=== PATIENT | male | born 1985 | race Caucasian/White ===

== ENCOUNTER 2016-05-05 21:45 | Emergency (ER) | payer OTHER ==
[~2016-05-05] VITALS: Ht 180.3 cm; Wt 85.0 kg
[~2016-05-05 21:45] MED LIST: CLIN150 PO; DOXY100T PO; IBUP800T23 PO
[2016-05-05 22:01] VITALS: BP 152/96; PULSE 105; RESP 18; TEMP 98.2; O2SAT 99
[2016-05-05] MEDS ORDERED: HALOPERIDOL LACTATE 5 MG/ML AMP ONE (23:15)
[2016-05-05] MEDS ORDERED: LORazepam 2 MG/ML VIAL ONE (23:15)
[2016-05-05] MEDS ORDERED: LORazepam 2 MG/ML VIAL IM ONE (23:30)
[2016-05-05] MEDS ORDERED: HALOPERIDOL LACTATE 5 MG/ML AMP IM ONE (23:30)
--- NOTE | 2016-05-06 00:18 | PD ---
HPI Chief Complaint: Psychiatric Symptoms Time Seen by Provider: 00:10 Travel History International Travel<30 days: No Contact w/Intl Traveler<30days: No Traveled to known affect area: No History of Present Illness HPI 30-year-old white male presents to emergency department under Baugh act by PD. The patient was observed carrying a knife and was acting out. The patient had been trespassed. He is brought in under [employer] act due to concern for safety of the patient as well as others. The patient here is acutely agitated and psychotic. He is making no sense. The patient is threatening to hurt the staff. I have come in to examine the patient. He is standing in threatening fashion. He is making verbally threatening statements towards the staff and myself. An order for Haldol 5 mg and Ativan 2 mg IM is given. Restraint orders are given. The patient is taken down and put in leather restraints for staff protection. Review of the medical record indicates a history of substance abuse in the past. The patient is acutely psychotic and no meaningful information is obtainable at this time. [facility] Past Medical History Narrative Medical Patient is acutely psychotic and unable to give information. Medical History: Unable to Obtain Diminished Hearing: No Tetanus Vaccination: Unknown Past Surgical History Surgical History: Unable to Obtain Social History Narrative Social History Unable to obtain Alcohol Use: Yes Tobacco Use: Yes Substance Use: Yes Allergies-Medications (Allergen,Severity, Reaction): Coded Allergies: Claritin (Verified Allergy, Severe, 05/05/16) Ultram (Verified Allergy, Severe, 05/05/16) Vicodin (Verified Allergy, Severe, 05/05/16) Reported Meds & Prescriptions Reported Meds & Active Scripts Active No Active Prescriptions or Reported Medications Review of Systems ROS Limitations: Psychotic Physical Exam Narrative GENERAL: Well-nourished, well-developed patient. Patient is agitated and threatening towards staff and myself. SKIN: Warm and dry. HEAD: Normocephalic and atraumatic. EYES: No scleral icterus. No injection or drainage. ENT: No nasal drainage noted. Mucous membranes pink. Airway patent. NECK: Supple, trachea midline. Moves head freely without obvious discomfort. CARDIOVASCULAR: Regular rate and rhythm without murmurs, gallops, or rubs. RESPIRATORY: Breath sounds equal bilaterally. No accessory muscle use. GASTROINTESTINAL: Abdomen soft, non-tender, nondistended. EXTREMITIES: No cyanosis or edema. BACK: Nontender without obvious deformity. No CVA tenderness. NEURO: Patient is alert to person. no sensorimotor deficits. Nonfocal. Pressured speech. PSYCH: The patient is acutely disorganized and delusional. Data Data Last Documented VS Vital Signs Date Time Temp Pulse Resp B/P Pulse Ox O2 Delivery O2 Flow Rate FiO2 05/05/16 22:19 106 21 05/05/16 22:01 98.2 152/96 99 Orders Complete Blood Count With Diff (05/05/16 22:02) Comprehensive Metabolic Panel (05/05/16 22:02) Drug Screen, Random Urine (05/05/16 22:02) Alcohol (Ethanol) (05/05/16 22:02) Salicylates (Aspirin) (05/05/16 22:02) Tylenol (Acetaminophen) (05/05/16 22:02) Psych Screen (05/05/16 22:02) Haloperidol Inj (Haldol Inj) (05/05/16 23:15) Lorazepam Inj (Ativan Inj) (05/05/16 23:15) Haloperidol Inj (Haldol Inj) (05/05/16 23:30) Lorazepam Inj (Ativan Inj) (05/05/16 23:30) Restraints Violent (05/05/16 23:16) Labs Laboratory Tests Test 05/06/16 00:25 White Blood Count 8.8 TH/MM3 Red Blood Count 4.93 MIL/MM3 Hemoglobin 15.4 GM/DL Hematocrit 42.8 % Mean Corpuscular Volume 86.9 FL Mean Corpuscular Hemoglobin 31.3 PG Mean Corpuscular Hemoglobin 36.0 % Concent Red Cell Distribution Width 13.1 % Platelet Count 235 TH/MM3 Mean Platelet Volume 7.7 FL Neutrophils (%) (Auto) 64.5 % Lymphocytes (%) (Auto) 18.3 % Monocytes (%) (Auto) 15.0 % Eosinophils (%) (Auto) 1.4 % Basophils (%) (Auto) 0.8 % Neutrophils # (Auto) 5.7 TH/MM3 Lymphocytes # (Auto) 1.6 TH/MM3 Monocytes # (Auto) 1.3 TH/MM3 Eosinophils # (Auto) 0.1 TH/MM3 Basophils # (Auto) 0.1 TH/MM3 CBC Comment AUTO DIFF Sodium Level 141 MEQ/L Potassium Level 3.5 MEQ/L Chloride Level 105 MEQ/L Carbon Dioxide Level 28.4 MEQ/L Anion Gap 8 MEQ/L Blood Urea Nitrogen 13 MG/DL Creatinine 0.88 MG/DL Estimat Glomerular Filtration 102 ML/MIN Rate Random Glucose 142 MG/DL Calcium Level 9.0 MG/DL Total Bilirubin 1.0 MG/DL Aspartate Amino Transf 36 U/L (AST/SGOT) Alanine Aminotransferase 69 U/L (ALT/SGPT) Alkaline Phosphatase 59 U/L Total Protein 7.3 GM/DL Albumin 3.9 GM/DL Salicylates Level 2.7 MG/DL Acetaminophen Level LESS THAN 2.0 MCG/ML Ethyl Alcohol Level LESS THAN 3 MG/DL MDM Medical Decision Making Medical Screen Exam Complete: Yes Emergency Medical Condition: Yes Medical Record Reviewed: Yes Interpretation(s) Laboratory Tests Test 05/06/16 00:25 White Blood Count 8.8 TH/MM3 Red Blood Count 4.93 MIL/MM3 Hemoglobin 15.4 GM/DL Hematocrit 42.8 % Mean Corpuscular Volume 86.9 FL Mean Corpuscular Hemoglobin 31.3 PG Mean Corpuscular Hemoglobin 36.0 % Concent Red Cell Distribution Width 13.1 % Platelet Count 235 TH/MM3 Mean Platelet Volume 7.7 FL Neutrophils (%) (Auto) 64.5 % Lymphocytes (%) (Auto) 18.3 % Monocytes (%) (Auto) 15.0 % Eosinophils (%) (Auto) 1.4 % Basophils (%) (Auto) 0.8 % Neutrophils # (Auto) 5.7 TH/MM3 Lymphocytes # (Auto) 1.6 TH/MM3 Monocytes # (Auto) 1.3 TH/MM3 Eosinophils # (Auto) 0.1 TH/MM3 Basophils # (Auto) 0.1 TH/MM3 CBC Comment AUTO DIFF Sodium Level 141 MEQ/L Potassium Level 3.5 MEQ/L Chloride Level 105 MEQ/L Carbon Dioxide Level 28.4 MEQ/L Anion Gap 8 MEQ/L Blood Urea Nitrogen 13 MG/DL Creatinine 0.88 MG/DL Estimat Glomerular Filtration 102 ML/MIN Rate Random Glucose 142 MG/DL Calcium Level 9.0 MG/DL Total Bilirubin 1.0 MG/DL Aspartate Amino Transf 36 U/L (AST/SGOT) Alanine Aminotransferase 69 U/L (ALT/SGPT) Alkaline Phosphatase 59 U/L Total Protein 7.3 GM/DL Albumin 3.9 GM/DL Salicylates Level 2.7 MG/DL Acetaminophen Level LESS THAN 2.0 MCG/ML Ethyl Alcohol Level LESS THAN 3 MG/DL Differential Diagnosis MDM: High Differential diagnoses: Schizophrenia, schizoaffective disorder, bipolar, anxiety, depression, adjustment reaction, mood disorder NOS, ODD, depressive disorder NOS, dementia, dementia with agitation, psychosis NOS, substance induced mood disorder, intermittent explosive disorder, Asperger syndrome, infection,electrolyte abnormality, malingering. Narrative Course Mental health screening discussed with the patient. Psychiatric screen ordered. The patient is medicated with Haldol 5 mg and Ativan 2 mg IM. An order for violent restraints have been given. The patient now settled down. He has D escalated. His restraints have been removed. His blood has been drawn and he is medically stable to go to [facility]. Mental health screening discussed with the patient. Psychiatric screen ordered. Diagnosis Primary Impression: Acute psychosis Scripts No Active Prescriptions or Reported Meds Condition: Stable Edward Paige May 06, 2016 00:18
[2016-05-06 00:46] LABS: AUTOMATED NEUTROPHIL # 5.7 TH/MM3 (1.8-7.7); BASOPHIL # 0.1 TH/MM3 (0-0.2); BASOPHIL % 0.8 % (0.0-2.0); EOSINOPHIL # 0.1 TH/MM3 (0-0.4); EOSINOPHIL % 1.4 % (0.0-4.0); HEMATOCRIT 42.8 % (39.0-51.0); LYMPH % 18.3 % (9.0-44.0); LYMPHOCYTE # 1.6 TH/MM3 (1.0-4.8); MEAN CELL VOLUME 86.9 FL (80.0-100.0); MEAN CORPUSCULAR HEMOGLOBIN 31.3 PG (27.0-34.0); NEUT % 64.5 % (16.0-70.0); PLATELET COUNT 235 TH/MM3 (150-450); RED BLOOD COUNT 4.93 MIL/MM3 (4.50-5.90); RED CELL DISTRIBUTION WIDTH 13.1 % (11.6-17.2); WHITE BLOOD COUNT 8.8 TH/MM3 (4.0-11.0)
[2016-05-06 00:57] LABS: HEMO FLAGS AUTO DIFF
[2016-05-06 01:04] LABS: ALT (GPT) 69 U/L (12-78); ANION GAP 8 MEQ/L (5-15); AST (GOT) 36 U/L (15-37); BICARBONATE 28.4 MEQ/L (21.0-32.0); BLOOD UREA NITROGEN 13 MG/DL (7-18); CHLORIDE 105 MEQ/L (98-107); GLOMERULAR FILTRATION RATE 102 ML/MIN (>89); POTASSIUM 3.5 MEQ/L (3.5-5.1); SODIUM (NA) 141 MEQ/L (136-145)
[2016-05-06 01:06] LABS: ACETAMINOPHEN LESS THAN 2.0 MCG/ML (10.0-30.0); ALKALINE PHOSPHATASE 59 U/L (45-117)
[2016-05-06 02:03] LABS: SCAN/DIFF AUTO DIFF CONFIRMED
[2016-05-06 03:39] VITALS: BP 108/51; PULSE 99; RESP 18
== END 2016-05-06 04:48 ==
LOC: NEPA 21:45 → NEPJ 05-06 04:48
DX: F23 Brief psychotic disorder (principal)
CPT/HCPCS: 80053; 80320; 80329; 85025; 96372; G0480; J1630; J2060

== ENCOUNTER 2016-06-12 19:58 | Emergency (ER) | payer OTHER ==
[~2016-06-12] VITALS: Ht 177.8 cm; Wt 90.0 kg
[2016-06-12 20:00] VITALS: BP 121/55; PULSE 94; RESP 18; TEMP 98.7; O2SAT 94
--- NOTE | 2016-06-12 20:42 | PD ---
HPI Chief Complaint: act Time Seen by Provider: 20:19 Travel History International Travel<30 days: No Contact w/Intl Traveler<30days: No Traveled to known affect area: No History of Present Illness HPI 31-year-old white male presents to emergency department under a act by PD. The patient appeared to be heavily intoxicated and staggering around and there was concern that he would suffer from harm. There was concern that he may walk out to traffic. The patient here is too intoxicated to answer any meaningful history. There is no evidence of trauma. [facility] Past Medical History Medical History: Unable to Obtain Diminished Hearing: No Tetanus Vaccination: Unknown Past Surgical History Surgical History: Unable to Obtain Social History Alcohol Use: Yes Tobacco Use: Yes Substance Use: Yes Allergies-Medications (Allergen,Severity, Reaction): Coded Allergies: Claritin (Verified Allergy, Severe, 05/05/16) Ultram (Verified Allergy, Severe, 05/05/16) Vicodin (Verified Allergy, Severe, 05/05/16) Reported Meds & Prescriptions Reported Meds & Active Scripts Active No Active Prescriptions or Reported Medications Review of Systems ROS Limitations: Intoxication Physical Exam Narrative GENERAL: Well-nourished, well-developed patient. Appears heavily intoxicated. Handling his secretions well. The patient arouses to noxious stimuli but falls asleep readily. There is no evidence of trauma. SKIN: Warm and dry. HEAD: Normocephalic and atraumatic. EYES: No scleral icterus. No injection or drainage. ENT: No nasal drainage noted. Mucous membranes pink. Airway patent. NECK: Supple, trachea midline. Moves head freely without obvious discomfort. CARDIOVASCULAR: Regular rate and rhythm without murmurs, gallops, or rubs. RESPIRATORY: Breath sounds equal bilaterally. No accessory muscle use. GASTROINTESTINAL: Abdomen soft, non-tender, nondistended. EXTREMITIES: No cyanosis or edema. BACK: Nontender without obvious deformity. No CVA tenderness. NEURO: Patient is alert to person only.. no sensorimotor deficits. Nonfocal. Slurred speech. PSYCH: No delusions. No auditory or visual hallucinations. [facility] Medical Decision Making Medical Screen Exam Complete: Yes Emergency Medical Condition: Yes Medical Record Reviewed: Yes Differential Diagnosis Differential diagnoses: Alcohol intoxication, substance abuse, electrolyte abnormality, malingering Narrative Course The patient is been medically cleared. The patient appears be heavily intoxicated. He will be allowed to sober up here in the ER and once he exhibits sobriety is [place] act will be lifted and he will be able to go home. This is alcohol intoxication, [place] act-lifted Diagnosis Primary Impression: Alcohol intoxication Qualified Code: F10.120 - Alcohol intoxication, uncomplicated Additional Impression: [place] act-lifted Additional Instructions: Rest. Increase fluids. Avoid alcohol. Avoid illegal substances. Follow-up with [facility] for detox. Do not operate a car or any heavy machinery under the influence of alcohol or drugs. Follow-up with a medical doctor this week. Return to the ER for emergencies Scripts No Active Prescriptions or Reported Meds Disposition: 01 DISCHARGE HOME Condition: Stable Edward Paige Jun 12, 2016 20:42
== END 2016-06-13 08:06 | disposition home or self-care (01) ==
LOC: NEPB 19:58
DX: F10.120 Alcohol abuse with intoxication, uncomplicated (principal)
CPT/HCPCS: 99284

== ENCOUNTER 2016-06-19 03:43 | Emergency (ER) | payer SELFPAY ==
[~2016-06-19] VITALS: Ht 167.6 cm; Wt 75.0 kg
[2016-06-19 04:30] VITALS: BP 149/68; PULSE 110; RESP 16; TEMP 98.3; O2SAT 100
[2016-06-19] MEDS ORDERED: LORazepam 2 MG/ML VIAL IV ONE (04:30)
[2016-06-19] MEDS ORDERED: HALOPERIDOL LACTATE 5 MG/ML AMP IM ONE (04:30)
[2016-06-19] MEDS ORDERED: diphenhydrAMINE HCL 50 MG/ML VIAL IV PUSH ONE (04:30)
[2016-06-19 04:34] VITALS: RESP 18
[2016-06-19 04:44] LABS: BASOPHIL # 0.1 TH/MM3 (0-0.2); BASOPHIL % 0.7 % (0.0-2.0); EOSINOPHIL # 0.1 TH/MM3 (0-0.4); EOSINOPHIL % 0.6 % (0.0-4.0); HEMATOCRIT 48.3 % (39.0-51.0); HEMO FLAGS DIFF FINAL; LYMPH % 16.3 % (9.0-44.0); LYMPHOCYTE # 1.7 TH/MM3 (1.0-4.8); MEAN CELL VOLUME 88.1 FL (80.0-100.0); MEAN CORPUSCULAR HGB CONC 35.1 % (32.0-36.0); MONO % 7.7 % (0.0-8.0); NEUT % 74.7 % (16.0-70.0); PLATELET COUNT 371 TH/MM3 (150-450); RED BLOOD COUNT 5.47 MIL/MM3 (4.50-5.90); WHITE BLOOD COUNT 10.7 TH/MM3 (4.0-11.0)
[2016-06-19] MEDS ORDERED: SODIUM CHLOR 0.9% 1000 ML INJ 1,000 ML IV ONE (05:00)
[2016-06-19 05:11] LABS: BLOOD, URINE NEG (NEG); GLUCOSE,URINE NEG (NEG); KETONE, URINE NEG (NEG); NITRITE,URINE NEG (NEG); URINE COLOR YELLOW (YELLW/STRAW)
[2016-06-19 05:12] LABS: COMMENT (UR) CULT NOT INDICATED; CULTURE IF INDICATED CULT NOT INDICATED
--- NOTE | 2016-06-19 05:16 | PD ---
HPI Chief Complaint: Psychiatric Symptoms Time Seen by Provider: 03:54 Travel History International Travel<30 days: No Contact w/Intl Traveler<30days: No History of Present Illness HPI The patient is a 31 year old male who presents to the [facility] emergency department with a history of being Baugh acted prior to arrival. The patient was Baugh acted due to running into traffic. The patient on confrontation by the police was noted to have delusions and reported suicidal ideations with thoughts of jumping off a bridge. The patient on arrival is agitated. The patient has handcuffs in place. The patient was placed in leather restraints for his and the staff's safety. The patient was intermittently screaming. The patient reported seeing demons. The patient reports that he did smoke marijuana this evening. He reports that he used IV drugs in the past, however not recently. The patient's history is limited due to his acute psychosis. [facility] Past Medical History Narrative Medical The patient's past medical history is significant for prior IV drug use Diminished Hearing: No Immunizations Current: Yes Tetanus Vaccination: Unknown Influenza Vaccination: No Past Surgical History Narrative Surgical The patient's past surgical history is unable to be obtained. Social History Alcohol Use: Yes (occ) Tobacco Use: Yes Substance Use: Yes Allergies-Medications (Allergen,Severity, Reaction): Coded Allergies: Claritin (Verified Allergy, Severe, 06/19/16) Ultram (Verified Allergy, Severe, 06/19/16) Vicodin (Verified Allergy, Severe, 06/19/16) Reported Meds & Prescriptions Reported Meds & Active Scripts Active No Active Prescriptions or Reported Medications Review of Systems Except as stated in HPI: all other systems reviewed are Neg General / Constitutional: No: Fever Eyes: No: Visual changes HENT: No: Headaches Cardiovascular: No: Chest Pain or Discomfort Respiratory: No: Shortness of Breath Gastrointestinal: No: Abdominal Pain Genitourinary: No: Dysuria Musculoskeletal: No: Pain Skin: No Rash Neurologic: No: Weakness Psychiatric: Positive: Depression, Suicidal Ideations, Disorder of Thought, Mood Disorder, Substance Abuse, No: Homicidal Ideation Endocrine: No: Polydipsia Hematologic/Lymphatic: No: Easy Bruising Physical Exam Narrative General: The patient is a well-developed well-nourished male, agitated on arrival, intermittently screaming. Head and Neck exam: Head is normocephalic atraumatic. Eyes: EOMI, pupils are equal round and reactive to light. Pupils are dilated on examination at 6 mm, however reactive to light. Nose: Midline septum with pink mucous membranes Mouth: Dentition unremarkable. Moist mucus membranes. Posterior oropharynx is not erythematous. No tonsillar hypertrophy. Uvula midline. Airway patent. Neck: No palpable lymphadenopathy. No nuchal rigidity. No thyromegaly. Cardiovascular: Sinus tachycardia in the low 100s without murmurs, gallops, or rubs. No pulse deficit to the extremities and simultaneous auscultation and palpation of his radial artery. Lungs: Clear to auscultation bilaterally. No wheezes, rhonchi, or rales. Abdomen: Soft, without tenderness to palpation in all 4 quadrants of the abdomen. No guarding, rebound, or rigidity. Normal bowel sounds are audible. Extremities: No clubbing, cyanosis, or edema. 2+ pulses in all 4 extremities. The patient has abrasions and areas of pick garcia in various stages of healing on his extremities. The patient has track garcia noted. Back: No spinous process tenderness to palpation. No costovertebral angle tenderness to palpation. Neurologic Exam: The patient is uncooperative with formal neurologic testing. The patient has no evidence of facial asymmetry. The patient has 5 over 5 strength in all 4 extremities with intact sensation over all dermatomes. Data Data Last Documented VS Vital Signs Date Time Temp Pulse Resp B/P Pulse Ox O2 Delivery O2 Flow Rate FiO2 06/19/16 06:20 75 16 125/77 99 Room Air 06/19/16 04:30 98.3 Orders Restraints Violent RT.Q2H (06/19/16 03:55) Complete Blood Count With Diff (06/19/16 04:16) Comprehensive Metabolic Panel (06/19/16 04:16) Thyroid Stimulating Hormone (06/19/16 04:16) Urinalysis - C+S If Indicated (06/19/16 04:16) Electrocardiogram (06/19/16 04:16) Oximetry (06/19/16 04:16) Iv Access Insert/Monitor (06/19/16 04:16) Ecg Monitoring (06/19/16 04:16) Cath For Specimen (06/19/16 04:16) Psych Screen (06/19/16 04:16) Haloperidol Inj (Haldol Inj) (06/19/16 04:30) Lorazepam Inj (Ativan Inj) (06/19/16 04:30) Restraints Violent (06/19/16 04:16) Drug Screen, Random Urine (06/19/16 04:16) Alcohol (Ethanol) (06/19/16 04:16) Salicylates (Aspirin) (06/19/16 04:16) Tylenol (Acetaminophen) (06/19/16 04:16) Diphenhydramine Inj (Benadryl Inj) (06/19/16 04:30) Sodium Chlor 0.9% 1000 Ml Inj (Ns 1000 M (06/19/16 05:00) Labs Laboratory Tests Test 06/19/16 06/19/16 04:25 04:30 White Blood Count 10.7 TH/MM3 Red Blood Count 5.47 MIL/MM3 Hemoglobin 17.0 GM/DL Hematocrit 48.3 % Mean Corpuscular Volume 88.1 FL Mean Corpuscular Hemoglobin 31.0 PG Mean Corpuscular Hemoglobin 35.1 % Concent Red Cell Distribution Width 13.0 % Platelet Count 371 TH/MM3 Mean Platelet Volume 7.4 FL Neutrophils (%) (Auto) 74.7 % Lymphocytes (%) (Auto) 16.3 % Monocytes (%) (Auto) 7.7 % Eosinophils (%) (Auto) 0.6 % Basophils (%) (Auto) 0.7 % Neutrophils # (Auto) 8.0 TH/MM3 Lymphocytes # (Auto) 1.7 TH/MM3 Monocytes # (Auto) 0.8 TH/MM3 Eosinophils # (Auto) 0.1 TH/MM3 Basophils # (Auto) 0.1 TH/MM3 CBC Comment DIFF FINAL Differential Comment Sodium Level 139 MEQ/L Potassium Level 4.2 MEQ/L Chloride Level 100 MEQ/L Carbon Dioxide Level 25.4 MEQ/L Anion Gap 14 MEQ/L Blood Urea Nitrogen 8 MG/DL Creatinine 1.13 MG/DL Estimat Glomerular Filtration 76 ML/MIN Rate Random Glucose 120 MG/DL Calcium Level 9.1 MG/DL Total Bilirubin 0.5 MG/DL Aspartate Amino Transf 29 U/L (AST/SGOT) Alanine Aminotransferase 50 U/L (ALT/SGPT) Alkaline Phosphatase 78 U/L Total Protein 8.8 GM/DL Albumin 4.3 GM/DL Thyroid Stimulating Hormone 0.732 uIU/ML 3rd Gen Salicylates Level 4.2 MG/DL Acetaminophen Level LESS THAN 2.0 MCG/ML Ethyl Alcohol Level LESS THAN 3 MG/DL Urine Color YELLOW Urine Turbidity HAZY Urine pH 7.0 Urine Specific [place] 1.014 Urine Protein NEG mg/dL Urine Glucose (UA) NEG mg/dL Urine Ketones NEG mg/dL Urine Occult Blood NEG Urine Nitrite NEG Urine Bilirubin NEG Urine Urobilinogen LESS THAN 2.0 MG/DL Urine Leukocyte Esterase NEG Urine RBC LESS THAN 1 /hpf Urine WBC 1 /hpf Urine Amorphous Sediment RARE Microscopic Urinalysis Comment CULT NOT INDICATED Urine Opiates Screen NEG Urine Barbiturates Screen NEG Urine Amphetamines Screen POS Urine Benzodiazepines Screen NEG Urine Cocaine Screen POS Urine Cannabinoids Screen POS MDM Medical Decision Making Medical Screen Exam Complete: Yes Emergency Medical Condition: Yes Medical Record Reviewed: Yes Differential Diagnosis Substance-induced mood disorder, versus bipolar disorder with acute psychosis, versus schizophrenia Narrative Course During the course of the patients emergency department visit, the patients history, examination, and differential diagnosis were reviewed with the patient. The patient had IV access obtained and blood work sent for analysis. The patient was placed on a cardiac cath lab radiology technologist with oximetry and blood pressure monitoring. An EKG was done on arrival. The patient's EKG shows a sinus tachycardia rate of 111, borderline right axis deviation, no acute ST segment elevation is noted. The patient was placed in leather restraints for his and the staff's safety. The patient's Baugh act was reviewed. A psychiatric screen was ordered. The patient was provided Ativan 1 mg IV, Haldol 5 mg IM, Benadryl 25 mg IV. The patient was started on normal saline 1 L IV fluid bolus. The patients laboratory studies were reviewed and remarkable for a white count of 10.7, hemoglobin 17, platelets 371 with 74.7 neutrophils, CMP is remarkable for glucose of 120, total protein 8.8, TSH 0.732, urinalysis is unremarkable. Urine drug screen is positive for amphetamines, cocaine, marijuana, acetaminophen less than 2, alcohol less than 3, salicylate 4.2. The patient has been medically cleared for evaluation by the psychiatric screener under a Baugh act. Diagnosis Primary Impression: Acute psychosis Additional Impression: Polysubstance abuse Scripts No Active Prescriptions or Reported Meds Vesta Cartwright MD Jun 19, 2016 05:16
[2016-06-19 05:20] LABS: ACETAMINOPHEN LESS THAN 2.0 MCG/ML (10.0-30.0); ALT (GPT) 50 U/L (12-78); ANION GAP 14 MEQ/L (5-15); AST (GOT) 29 U/L (15-37); BICARBONATE 25.4 MEQ/L (21.0-32.0); BLOOD UREA NITROGEN 8 MG/DL (7-18); CHLORIDE 100 MEQ/L (98-107); GLOMERULAR FILTRATION RATE 76 ML/MIN (>89); POTASSIUM 4.2 MEQ/L (3.5-5.1); SODIUM (NA) 139 MEQ/L (136-145)
[2016-06-19 05:28] LABS: ALKALINE PHOSPHATASE 78 U/L (45-117); TOTAL BILIRUBIN ADULT 0.5 MG/DL (0.2-1.0)
[2016-06-19 06:02] LABS: AMPHETAMINE, URINE POS (NEG); BARBITURATES, URINE NEG (NEG); COCAINE, URINE POS (NEG)
[2016-06-19 06:20] VITALS: BP 125/77; PULSE 75; RESP 16; O2SAT 99
[2016-06-19 11:09] VITALS: BP 109/55; PULSE 67; RESP 16; TEMP 98; O2SAT 96
--- NOTE | 2016-06-19 14:49 | EKG ---
Date Performed: 06/19/2016 Time Performed: 04:38:02 PTAGE: 31 years EKG: SINUS TACHYCARDIA BORDERLINE RIGHT AXIS DEVIATION ABNORMAL RHYTHM ECG NO PREVIOUS TRACING DOCTOR: Narendra Horne Interpretating Date/Time 06/19/2016 14:41:09
--- NOTE | 2016-06-19 17:09 | PD ---
History of Present Illness Chief Complaint: Psychiatric Symptoms Time Seen by Provider: 16:45 Travel History International Travel<30 Days: No Contact w/Intl Traveler<30days: No Legal Status Legal Status: Baugh Act Baugh Act Signed By: Andres Quintanilla History of Present Illness: History of Present Illness HPI The patient is a 31 year old male who presents to the [facility] emergency department under a Baugh initiated by JENAE. As per the report he was observed walking into traffic and was reported kicking a fence.. When the police confronted him he did not make sense and stated he has several times. He made a reference of jumping off a bridge but he stopped himself". On arrival to the ed he was agitated and reported seeing demons. He required restraints as well as ETO. Patient was allowed to sleep and was monitored in J pod. He presented to ed with positive toxicology for amphetamines, cannabinoids as well as cocaine. As per EMR review he was last seen in [facility] on June 12, 2016 and at that time he was intoxicated and was sent to [facility]. One other visit in May 05, 2016 with dx of acute psychosis related to substance use. Patient at the time of this interview is awake. He iis heavily tattooed male . Poor grooming. he is clinically sober at this [facility] and does not exhibit any psychosis, no cornelius, no paranoia. He denies any suicidal or homicidal ideation. He has no recollection of events leading to the BA. he requests to be discharged at this time.after he asks for a meal. PFSH Past Medical History Diminished Hearing: No Immunizations Current: Yes Tetanus Vaccination: Unknown Influenza Vaccination: No Psychiatric History Psychiatric History Hx Psychiatric Treatment: deneis any History of Inpatient Treatment: No Guns or firearms in home: No Social History Single male from [place]. He staes he is here in [place] " until I leave back to [place]". Hx Alcohol Use: Yes (occ) Hx Tobacco Use: Yes Hx Substance Use: Yes Substance Use Type: Alcohol, Marijuana, Amphetamines-Stimulants, Cocaine Hx of Substance Use Treatment: Yes (has been sent to [facility]) Family Psychiatric History None provided Allergies-Medications (Allergen,Severity, Reaction): Coded Allergies: Claritin (Verified Allergy, Severe, 06/19/16) Ultram (Verified Allergy, Severe, 06/19/16) Vicodin (Verified Allergy, Severe, 06/19/16) Reported Meds & Prescriptions Reported Meds & Active Scripts Active No Active Prescriptions or Reported Medications Review of Systems Except as stated in HPI: all other systems reviewed are Neg Psychiatric: DENIES: Anxiety, Confusion, Mood changes, Depression, Hallucinations, Agitation, Suicidal Ideation, Homicidal Ideation, Delusions Exam Duck: Person (ox4) Mood: Calm Affect: Euthymic Speech: Clear, Logical Eye Contact: Normal Memory Intact: Comment (no impairmetn) Hallucinations: Other (negative) Delusions: No Suicidal: Ideation (denies any) Homicidal: Ideation (denies any) Insight/Judgement poor. poor MDM Medical Decision Making Medical Record Reviewed: Yes Assessment/Plan 31 year old male that in context of multiple drug intoxication was found walking into traffic. Patient was allowed to sober up clinically in secure environment and he presented no behavioral concerns and no suicidality. He is requesting discharge and he presents no criteria for BA. He will be discharged at this time. Psychoeducation provided. Orders Restraints Violent RT.Q2H (06/19/16 03:55) Complete Blood Count With Diff (06/19/16 04:16) Comprehensive Metabolic Panel (06/19/16 04:16) Thyroid Stimulating Hormone (06/19/16 04:16) Urinalysis - C+S If Indicated (06/19/16 04:16) Electrocardiogram (06/19/16 04:16) Oximetry (06/19/16 04:16) Iv Access Insert/Monitor (06/19/16 04:16) Ecg Monitoring (06/19/16 04:16) Cath For Specimen (06/19/16 04:16) Psych Screen (06/19/16 04:16) Haloperidol Inj (Haldol Inj) (06/19/16 04:30) Lorazepam Inj (Ativan Inj) (06/19/16 04:30) Restraints Violent (06/19/16 04:16) Drug Screen, Random Urine (06/19/16 04:16) Alcohol (Ethanol) (06/19/16 04:16) Salicylates (Aspirin) (06/19/16 04:16) Tylenol (Acetaminophen) (06/19/16 04:16) Diphenhydramine Inj (Benadryl Inj) (06/19/16 04:30) Sodium Chlor 0.9% 1000 Ml Inj (Ns 1000 M (06/19/16 05:00) Diet Regular Basic (06/19/16 Breakfast) Diet Regular Basic (06/19/16 Lunch) Results Vital Signs Date Time Temp Pulse Resp B/P Pulse Ox O2 Delivery O2 Flow Rate FiO2 06/19/16 11:09 98.0 67 16 109/55 96 Room Air 06/19/16 06:20 75 16 125/77 99 Room Air 06/19/16 04:34 18 06/19/16 04:30 98.3 110 16 149/68 100 Room Air 06/19/16 04:30 16 Laboratory Tests Test 06/19/16 06/19/16 04:25 04:30 White Blood Count 10.7 Red Blood Count 5.47 Hemoglobin 17.0 Hematocrit 48.3 Mean Corpuscular Volume 88.1 Mean Corpuscular Hemoglobin 31.0 Mean Corpuscular Hemoglobin 35.1 Concent Red Cell Distribution Width 13.0 Platelet Count 371 Mean Platelet Volume 7.4 Neutrophils (%) (Auto) 74.7 Lymphocytes (%) (Auto) 16.3 Monocytes (%) (Auto) 7.7 Eosinophils (%) (Auto) 0.6 Basophils (%) (Auto) 0.7 Neutrophils # (Auto) 8.0 Lymphocytes # (Auto) 1.7 Monocytes # (Auto) 0.8 Eosinophils # (Auto) 0.1 Basophils # (Auto) 0.1 CBC Comment DIFF FINAL Differential Comment Sodium Level 139 Potassium Level 4.2 Chloride Level 100 Carbon Dioxide Level 25.4 Anion Gap 14 Blood Urea Nitrogen 8 Creatinine 1.13 Estimat Glomerular Filtration 76 Rate Random Glucose 120 Calcium Level 9.1 Total Bilirubin 0.5 Aspartate Amino Transf 29 (AST/SGOT) Alanine Aminotransferase 50 (ALT/SGPT) Alkaline Phosphatase 78 Total Protein 8.8 Albumin 4.3 Thyroid Stimulating Hormone 0.732 3rd Gen Salicylates Level 4.2 Acetaminophen Level LESS THAN 2.0 Ethyl Alcohol Level LESS THAN 3 Urine Color YELLOW Urine Turbidity HAZY Urine pH 7.0 Urine Specific Hardwick 1.014 Urine Protein NEG Urine Glucose (UA) NEG Urine Ketones NEG Urine Occult Blood NEG Urine Nitrite NEG Urine Bilirubin NEG Urine Urobilinogen LESS THAN 2.0 Urine Leukocyte Esterase NEG Urine RBC LESS THAN 1 Urine WBC 1 Urine Amorphous Sediment RARE Microscopic Urinalysis Comment CULT NOT INDICATED Urine Opiates Screen NEG Urine Barbiturates Screen NEG Urine Amphetamines Screen POS Urine Benzodiazepines Screen NEG Urine Cocaine Screen POS Urine Cannabinoids Screen POS Diagnosis Primary Impression: Polysubstance abuse Additional Impression: Substance induced mood disorder Psychiatrically Cleared: Yes Med/ Other Pt Specific Info: No Meds Exist/No RX given Prescriptions No Active Prescriptions or Reported Meds Disposition: 01 DISCHARGE HOME Condition: Stable Problem Qualifiers Karen Escalante Jun 19, 2016 17:09
== END 2016-06-19 18:35 | disposition home or self-care (01) ==
LOC: NEPE 03:43 → NEPJ 18:35
DX: F23 Brief psychotic disorder (principal); R94.31 Abnormal electrocardiogram [ECG] [EKG]; F19.10 Other psychoactive substance abuse, uncomplicated; F39 Unspecified mood [affective] disorder; Z72.0 Tobacco use
CPT/HCPCS: 80053; 80307; 81001; 84443; 85025; 93005; 96361; 96372; 96374; 96375; 99284; J1200; J1630; J2060; J7030

== ENCOUNTER 2016-06-24 19:16 | Emergency (ER) | payer OTHER ==
[2016-06-24 19:29] VITALS: BP 134/65; PULSE 87; RESP 18; TEMP 98.1; O2SAT 100
--- NOTE | 2016-06-24 19:36 | PD ---
HPI Chief Complaint: Medical Clearance Time Seen by Provider: 19:32 Travel History International Travel<30 days: No Contact w/Intl Traveler<30days: No Traveled to known affect area: No History of Present Illness HPI 31-year-old white male presents to emergency Department in police custody for medical clearance to go to group home. The patient is complaining of pain in his right ribs from an injury he sustained during his arrest. The patient attempted to flee and resisted arrest. An officer placed his knee into the patient's right chest. The patient states the pain is moderate. Worse with taking a deep breath or cough. He denies any injury to his head, neck or back. No injury to the abdomen, pelvis or extremities. No syncope. Up-to-date with immunizations. Positive shortness of breath due to pain. No numbness, tingling or focal weakness. PFSH Past Medical History Narrative Medical Polysubstance abuse Diminished Hearing: No Immunizations Current: Yes Tetanus Vaccination: < 5 Years Past Surgical History Surgical History: No Previous Surgery Social History Alcohol Use: Yes (occ) Tobacco Use: Yes Substance Use: Yes Allergies-Medications (Allergen,Severity, Reaction): Coded Allergies: Claritin (Verified Allergy, Severe, 06/24/16) Ultram (Verified Allergy, Severe, 06/24/16) Vicodin (Verified Allergy, Severe, 06/24/16) Reported Meds & Prescriptions Reported Meds & Active Scripts Active Ibuprofen 800 Mg Tab 800 Mg PO Q8H PRN Review of Systems Except as stated in HPI: all other systems reviewed are Neg Physical Exam Narrative GENERAL: Well-developed, well-nourished in no apparent distress. Nontoxic appearing. HEAD: Normocephalic, atraumatic. EYES: Pupils equal round and reactive. Extraocular motions intact. No scleral icterus. No injection or drainage. ENT: Nose clear. Throat without erythema, tonsillar hypertrophy or exudate. Uvula midline. Airway patent. NECK: Trachea midline. Supple, nontender, moves head freely. No central bony tenderness or spasm. CARDIOVASCULAR: Regular rate and rhythm without murmurs, gallops, or rubs. CHEST: Tender right anterior lower ribs without deformity or crepitance. No retractions or use of accessory muscles. RESPIRATORY: Clear to auscultation. Breath sounds equal bilaterally. No wheezes , rales, or rhonchi. GASTROINTESTINAL: Abdomen soft, non-tender, nondistended. No hepato-splenomegaly , or palpable masses. No guarding. EXTREMITIES: No clubbing, cyanosis, or edema. No joint tenderness. Superficial abrasion over the dorsum of the right hand. BACK: Nontender without deformity. No flank tenderness. NEUROLOGICAL: Awake, alert and oriented x 3 .Cranial nerves grossly intact. Motor and sensory grossly within normal limits. Normal speech. Data Data Last Documented VS Vital Signs Date Time Temp Pulse Resp B/P Pulse Ox O2 Delivery O2 Flow Rate FiO2 06/24/16 19:29 98.1 87 18 134/65 100 Orders Chest, Single Ap (06/24/16 19:28) Ibuprofen (Motrin) (06/24/16 19:45) MDM Medical Decision Making Medical Screen Exam Complete: Yes Emergency Medical Condition: Yes Medical Record Reviewed: Yes Interpretation(s) cHEST X-RAY: nEGATIVE FOR ACUTE FRACTURE. nO PNEUMOTHORAX Differential Diagnosis MDM: High Differential diagnoses: Fracture, sprain, strain, dislocation, contusion, neurovascular injury Narrative Course X-rays negative. Patient's given Motrin 800 mg by mouth. This is right chest contusion, medical to go to group home. The patient is medically cleared to go to group home Diagnosis Primary Impression: Contusion of right chest wall Patient Instructions: General Instructions Additional Instructions: Rest. Ice for the next 3 days followed by heat . Motrin. Follow-up with a primary care doctor in one week. Return to the ER for emergencies. Medically cleared to go to group home. Med/Other Pt SpecificInfo: Prescription(s) given Scripts Ibuprofen 800 Mg [id number] Mg PO Q8H PRN (Pain/Inflammation) #30 TAB Prov:Jony Cruz MD 06/24/16 Disposition: [address] LAW ENFORCEMNT Condition: Stable Edward Paige Jun 24, 2016 19:36
[2016-06-24] MEDS ORDERED: IBUP800T23 PO (19:37)
[2016-06-24] MEDS ORDERED: IBUPROFEN 800 MG TAB PO ONE (19:45)
--- NOTE | 2016-06-24 19:57 | RADRPT ---
EXAM DATE/TIME: 06/24/2016 19:41 [facility] COMPARISON: No previous studies available for comparison. INDICATIONS : Right anterior lower rib pain. MEDICAL HISTORY : None. SURGICAL HISTORY : None. ENCOUNTER: Initial ACUITY: 1 day PAIN SCORE: 10/10 LOCATION: Right chest FINDINGS: A single view of the chest demonstrates the lungs to be symmetrically aerated without evidence of mas s, infiltrate or effusion. The cardiomediastinal contours are unremarkable. Osseous structures are intact. CONCLUSION: No acute disease. Shlomo Martin MD on June 24, 2016 at 19:55 Board Certified Radiologist. This report was verified electronically.
== END 2016-06-24 20:07 ==
LOC: NEPB 19:16
DX: S20.211A Contusion of right front wall of thorax, initial encounter (principal); X58.XXXA Exposure to other specified factors, initial encounter; Y93.89 Activity, other specified; Y92.9 Unspecified place or not applicable
CPT/HCPCS: 71010; 99283

== ENCOUNTER 2016-08-19 22:23 | Emergency (ER) | payer SELFPAY ==
[~2016-08-19] VITALS: Ht 182.9 cm; Wt 85.0 kg
[~2016-08-19 22:23] MED LIST changes: -CLIN150 PO; -DOXY100T PO
[2016-08-19 22:34] VITALS: BP 145/83; PULSE 124; RESP 16; TEMP 99; O2SAT 98
[2016-08-19] MEDS ORDERED: HALOPERIDOL LACTATE 5 MG/ML AMP IM ONE (22:45)
--- NOTE | 2016-08-19 22:56 | PD ---
HPI Chief Complaint: Alcohol/Drug Intoxication Time Seen by Provider: 22:48 Travel History International Travel<30 days: No Contact w/Intl Traveler<30days: No Traveled to known affect area: No History of Present Illness HPI 31-year-old white male presents to emergency department under [place] act by PD. The patient was noted to be wandering out into the traffic appeared to be under the influence of alcohol and/or drugs. The patient is slow to respond is not making sense at this time. There is no meaningful history obtainable at this time. Review the medical records indicates multiple admissions was substance abuse history in the past. Prior drug test positive for amphetamines , cocaine, and cannabinoids. This appears to be a similar type presentation. There is no indication for Baugh act at this time. The patient denies suicidal or homicidal ideation. There is no evidence of trauma. [facility] Past Medical History Narrative Medical Review of the patient's record indicates substance abuse Medical History: Unable to Obtain Diminished Hearing: No Immunizations Current: Yes Tetanus Vaccination: Unknown Past Surgical History Surgical History: Unable to Obtain Social History Alcohol Use: Yes ([facility]) Tobacco Use: Yes Substance Use: Yes Allergies-Medications (Allergen,Severity, Reaction): Coded Allergies: Claritin (Verified Allergy, Severe, 08/19/16) Ultram (Verified Allergy, Severe, 08/19/16) Vicodin (Verified Allergy, Severe, 08/19/16) Reported Meds & Prescriptions Reported Meds & Active Scripts Active Ibuprofen 800 Mg Tab 800 Mg PO Q8H PRN Review of Systems ROS Limitations: Intoxication Physical Exam Narrative GENERAL: Well-nourished, well-developed patient. Patient is alert but his demeanor is inappropriate and confrontational. He is also mildly psychotic. He is talking to himself. He is answering questions inappropriately and appears under the influence of drugs. He is mildly agitated... SKIN: Warm and dry. HEAD: Normocephalic and atraumatic. EYES: No scleral icterus. No injection or drainage. Pupils are dilated and slow to respond. ENT: No nasal drainage noted. Mucous membranes pink. Airway patent. NECK: Supple, trachea midline. Moves head freely without obvious discomfort. CARDIOVASCULAR: Regular rate and rhythm without murmurs, gallops, or rubs. RESPIRATORY: Breath sounds equal bilaterally. No accessory muscle use. GASTROINTESTINAL: Abdomen soft, non-tender, nondistended. EXTREMITIES: No cyanosis or edema. BACK: Nontender without obvious deformity. No CVA tenderness. NEURO: Patient is alert and oriented. no sensorimotor deficits. Nonfocal. Normal speech. PSYCH: No delusions. No auditory or visual hallucinations. Data Data Last Documented VS Vital Signs Date Time Temp Pulse Resp B/P Pulse Ox O2 Delivery O2 Flow Rate FiO2 08/19/16 22:34 99.0 124 16 145/83 98 Orders Haloperidol Inj (Haldol Inj) (08/19/16 22:45) [facility] Medical Decision Making Medical Screen Exam Complete: Yes Emergency Medical Condition: Yes Medical Record Reviewed: Yes Differential Diagnosis Differential diagnoses: Alcohol intoxication, substance abuse, electrolyte abnormality, malingering Narrative Course The patient is given Haldol 5 mg IM for his behavior and psychosis. The patient has now sobered up area and he is cooperative. He is now making sense and is consider medically stable for discharge. This is substance induced mood disorder Diagnosis Primary Impression: Substance induced mood disorder Patient Instructions: General Instructions Additional Instructions: Rest. Increase fluids. Avoid alcohol. Avoid illegal substances. Follow-up with [facility] for detox. Do not operate a car or any heavy machinery under the influence of alcohol or drugs. Follow-up with a medical doctor this week. Return to the ER for emergencies Med/Other Pt SpecificInfo: No Meds Exist/No RX given Disposition: 01 DISCHARGE HOME Condition: Stable Edward Paige August 19, 2016 22:56
[2016-08-20 06:00] VITALS: BP 139/72; PULSE 90; RESP 18; O2SAT 96
== END 2016-08-20 06:51 | disposition home or self-care (01) ==
LOC: NEPD 22:23
DX: F19.94 Other psychoactive substance use, unspecified with psychoactive substance-induced mood disorder (principal); Z72.0 Tobacco use
CPT/HCPCS: 96372; 99284; J1630

== ENCOUNTER 2016-10-30 13:23 | Emergency (ER) | payer OTHER ==
[2016-10-30 13:35] LABS: MEAN CORPUSCULAR HGB CONC 36.1 % (32.0-36.0)
--- NOTE | 2016-10-30 13:58 | PD ---
HPI Chief Complaint: Psychiatric Symptoms Time Seen by Provider: 13:55 Travel History International Travel<30 days: No Contact w/Intl Traveler<30days: No History of Present Illness HPI 31 YO M presents to the ED under Baugh Act after being found banging on a door and hallucinating. On arrival the patient is violent and requires restraints. On presentation he endorses using crystal meth but declines to state when or an amount. The patient is psychotic, speaking to people who are not in the room. He is unable to provide any other meaningful history. PFSH Past Medical History Diminished Hearing: No Immunizations Current: Yes Social History Alcohol Use: Yes (occ) Tobacco Use: Yes Substance Use: Yes Allergies-Medications (Allergen,Severity, Reaction): Coded Allergies: Claritin (Verified Allergy, Severe, 08/19/16) Ultram (Verified Allergy, Severe, 08/19/16) Vicodin (Verified Allergy, Severe, 08/19/16) Reported Meds & Prescriptions Reported Meds & Active Scripts Active Ibuprofen 800 Mg Tab 800 Mg PO Q8H PRN Review of Systems Except as stated in HPI: all other systems reviewed are Neg Physical Exam Narrative GENERAL: Well-nourished, well-developed white male in no acute distress. PSYCHIATRIC: Delusional, hallucinating, psychotic. SKIN: Focused skin assessment warm/dry. Multiple tattoos, facial tattoos, sunburn, blanching, maculopapular rash under bilateral axilla. HEAD: Normocephalic. EYES: No scleral icterus. No injection or drainage. Pupils 3-4 mm bilaterally. NECK: Supple, trachea midline. No JVD or lymphadenopathy. CARDIOVASCULAR: Regular rate and rhythm without murmurs, gallops, or rubs. RESPIRATORY: Breath sounds clear and equal bilaterally. No accessory muscle use. GASTROINTESTINAL: Abdomen soft, non-tender, nondistended. Active bowel sounds. MUSCULOSKELETAL: No cyanosis, or edema. BACK: Nontender without obvious deformity. No CVA tenderness. Data Data Last Documented VS Vital Signs Date Time Temp Pulse Resp B/P Pulse Ox O2 Delivery O2 Flow Rate FiO2 10/31/16 10:28 67 18 120/58 100 Room Air Orders Complete Blood Count With Diff (10/30/16 13:33) Comprehensive Metabolic Panel (10/30/16 13:33) Psych Screen (10/30/16 13:33) Drug Screen, Random Urine (10/30/16 13:33) Alcohol (Ethanol) (10/30/16 13:33) Restraints Violent (10/30/16 13:34) Lorazepam Inj (Ativan Inj) (10/30/16 14:00) Diet Regular Basic (10/30/16 Dinner) Olanzapine Inj (Zyprexa Inj) (10/30/16 15:45) Diet Regular Basic (10/31/16 Breakfast) Olanzapine Inj (Zyprexa Inj) (10/31/16 06:30) Lorazepam Inj (Ativan Inj) (10/31/16 06:30) Lorazepam Inj (Ativan Inj) (10/31/16 06:30) Diet Regular Basic (10/31/16 Lunch) Labs Laboratory Tests Test 10/31/16 05:55 White Blood Count 5.8 TH/MM3 Red Blood Count 4.33 MIL/MM3 Hemoglobin 13.9 GM/DL Hematocrit 38.5 % Mean Corpuscular Volume 88.9 FL Mean Corpuscular Hemoglobin 32.1 PG Mean Corpuscular Hemoglobin 36.1 % Concent Red Cell Distribution Width 14.4 % Platelet Count 193 TH/MM3 Mean Platelet Volume 7.8 FL Neutrophils (%) (Auto) 54.6 % Lymphocytes (%) (Auto) 27.1 % Monocytes (%) (Auto) 11.9 % Eosinophils (%) (Auto) 5.6 % Basophils (%) (Auto) 0.8 % Neutrophils # (Auto) 3.2 TH/MM3 Lymphocytes # (Auto) 1.6 TH/MM3 Monocytes # (Auto) 0.7 TH/MM3 Eosinophils # (Auto) 0.3 TH/MM3 Basophils # (Auto) 0.0 TH/MM3 CBC Comment AUTO DIFF Differential Comment AUTO DIFF CONFIRMED Sodium Level 140 MEQ/L Potassium Level 3.1 MEQ/L Chloride Level 104 MEQ/L Carbon Dioxide Level 27.8 MEQ/L Anion Gap 8 MEQ/L Blood Urea Nitrogen 12 MG/DL Creatinine 0.93 MG/DL Estimat Glomerular Filtration 95 ML/MIN Rate Random Glucose 116 MG/DL Calcium Level 8.6 MG/DL Total Bilirubin 0.7 MG/DL Aspartate Amino Transf 38 U/L (AST/SGOT) Alanine Aminotransferase 43 U/L (ALT/SGPT) Alkaline Phosphatase 58 U/L Total Protein 6.8 GM/DL Albumin 3.5 GM/DL Ethyl Alcohol Level 3 MG/DL MDM Medical Decision Making Medical Screen Exam Complete: Yes Emergency Medical Condition: Yes Differential Diagnosis Adjustment disorder versus anxiety versus bipolar versus depression versus dementia versus electrolyte disorder versus malingering versus mood disorder versus ODD versus psychosis versus PTSD versus schizophrenia versus schizoaffective disorder versus substance-induced mood disorder versus other Narrative Course 31 YO M presents to the ED under Baugh Act after being found banging on a door and hallucinating. On arrival the patient is violent and requires restraints. On presentation he endorses using crystal meth but declines to state when or an amount. The patient is psychotic, speaking to people who are not in the room. He is unable to provide any other meaningful history. Vitals reviewed. Physical exam reveals well developed white male in no acute distress. Patient is delusional, hallucinating, psychotic. He has multiple tattoos as well as a sunburn over the upper extremities and a blanching, maculopapular rash in bilateral axilla. Pupils 3-4 mm bilaterally. No appreciable M/R/G. Breath sounds clear to auscultation bilaterally. Abdomen soft, nontender. No lower extremity edema. Patient was administered 2mg Ativan IM. He continued to be violent, thrashing against the restraints and was administered 10 mg Zyprexa IM. ON recheck the patient is sleeping. Pending lab work, he will be cleared for psychiatric evaluation. Michelle Almeida Oct 30, 2016 13:58
[2016-10-30] MEDS ORDERED: LORazepam 2 MG/ML VIAL IM ONE (14:00)
[2016-10-30] MEDS ORDERED: OLANZapine IM 10 MG VIAL IM ONE (15:45)
[2016-10-30 16:06] VITALS: BP 152/69; PULSE 88; RESP 18; O2SAT 97
[2016-10-30 17:50] VITALS: BP 141/63; PULSE 54; RESP 18; O2SAT 94
[2016-10-30 22:16] VITALS: BP 123/58; PULSE 61; RESP 18; O2SAT 96
[2016-10-31 02:00] VITALS: BP 123/60; PULSE 89; RESP 18; O2SAT 96
[2016-10-31 06:21] LABS: AUTOMATED NEUTROPHIL # 3.2 TH/MM3 (1.8-7.7); BASOPHIL % 0.8 % (0.0-2.0); EOSINOPHIL # 0.3 TH/MM3 (0-0.4); EOSINOPHIL % 5.6 % (0.0-4.0); HEMATOCRIT 38.5 % (39.0-51.0); LYMPH % 27.1 % (9.0-44.0); LYMPHOCYTE # 1.6 TH/MM3 (1.0-4.8); MEAN CELL VOLUME 88.9 FL (80.0-100.0); MEAN CORPUSCULAR HEMOGLOBIN 32.1 PG (27.0-34.0); MONO % 11.9 % (0.0-8.0); NEUT % 54.6 % (16.0-70.0); PLATELET COUNT 193 TH/MM3 (150-450); RED BLOOD COUNT 4.33 MIL/MM3 (4.50-5.90); RED CELL DISTRIBUTION WIDTH 14.4 % (11.6-17.2); WHITE BLOOD COUNT 5.8 TH/MM3 (4.0-11.0)
[2016-10-31 06:23] LABS: HEMO FLAGS AUTO DIFF
[2016-10-31] MEDS ORDERED: LORazepam 2 MG/ML VIAL IM ONE ×2 (06:30)
[2016-10-31] MEDS ORDERED: OLANZapine IM 10 MG VIAL IM ONE (06:30)
[2016-10-31 06:49] LABS: ANION GAP 8 MEQ/L (5-15); AST (GOT) 38 U/L (15-37); BICARBONATE 27.8 MEQ/L (21.0-32.0); BLOOD UREA NITROGEN 12 MG/DL (7-18); CHLORIDE 104 MEQ/L (98-107); GLOMERULAR FILTRATION RATE 95 ML/MIN (>89); POTASSIUM 3.1 MEQ/L (3.5-5.1); SODIUM (NA) 140 MEQ/L (136-145)
[2016-10-31 06:50] LABS: ALT (GPT) 43 U/L (12-78)
[2016-10-31 06:52] LABS: ALKALINE PHOSPHATASE 58 U/L (45-117); TOTAL BILIRUBIN ADULT 0.7 MG/DL (0.2-1.0)
[2016-10-31 07:42] LABS: SCAN/DIFF AUTO DIFF CONFIRMED
[2016-10-31 10:28] VITALS: BP 120/58; PULSE 67; RESP 18; O2SAT 100
[2016-10-31 15:03] VITALS: BP 116/55; PULSE 60; RESP 18; O2SAT 96
[2016-10-31 18:05] VITALS: BP 100/46; PULSE 58; RESP 16; O2SAT 95
[2016-10-31 22:34] VITALS: BP 127/59; PULSE 76; RESP 17; O2SAT 96
[2016-11-01 02:18] VITALS: BP 120/62; PULSE 73; RESP 18; O2SAT 100
== END 2016-11-01 03:45 ==
LOC: NEPJ 13:23
DX: F15.94 Other stimulant use, unspecified with stimulant-induced mood disorder (principal); F10.10 Alcohol abuse, uncomplicated; F17.290 Nicotine dependence, other tobacco product, uncomplicated
CPT/HCPCS: 80053; 80307; 85025; 96374; 96375; 96376; 99285; J2060

== ENCOUNTER 2017-01-03 04:00 | Emergency (ER) | payer OTHER ==
[~2017-01-03] VITALS: Ht 177.8 cm; Wt 78.0 kg
[2017-01-03] MEDS ORDERED: SODIUM CHLOR 0.9% 1000 ML INJ 1,000 ML IV SCH (04:08)
[2017-01-03 04:14] VITALS: BP 138/71; PULSE 114; RESP 14; TEMP 98.7; O2SAT 98
[2017-01-03] MEDS ORDERED: HALOPERIDOL LACTATE 5 MG/ML AMP IM ONE (04:15)
[2017-01-03] MEDS ORDERED: LORazepam 2 MG/ML VIAL IV PUSH ONE (04:15)
--- NOTE | 2017-01-03 04:15 | PD ---
HPI Chief Complaint: AMS/MAYEN ACT Time Seen by Provider: 04:07 Travel History International Travel<30 days: No Contact w/Intl Traveler<30days: No Traveled to known affect area: No History of Present Illness HPI PATIENT WAS PICKED UP FROM [facility] BY [employer] WHERE HE WAS ACTING ERRATIC WALKING IN FRONT OF MOVING TRAFFIC, CRYING AND STATED THAT HE WANTED TO KILL HIMSELF...911 CALLED AND VANDANA RAMIRES RESPONDED PLACING PATIENT IN MAYEN ACT. PATIENT MENTIONED THAT HE HAD USED METH RECENTLY PFS Past Medical History Diminished Hearing: No Immunizations Current: Yes Social History Alcohol Use: Yes (occ) Tobacco Use: Yes Substance Use: Yes Allergies-Medications (Allergen,Severity, Reaction): Coded Allergies: No Known Allergies (Unverified , 01/03/17) Reported Meds & Prescriptions Reported Meds & Active Scripts Active Keflex (Cephalexin) 500 Mg Cap 500 Mg PO Q8H 10 Days Bactrim DS (Sulfamethoxazole-Trimethoprim) 800-160 Mg Tab 1 Tab PO BID [address] (Diclofenac Sodium) 75 Mg Tabdr 75 Mg PO BID PRN Review of Systems ROS Limitations: Altered Mental Status Except as stated in HPI: all other systems reviewed are Neg Physical Exam Exam Limitations: Altered Mental Status Narrative GENERAL: SKIN: Warm and dry. PATIENT HAS MULTIPLE SCAB ANDRES ON HIS BODY AND FACE NONE INFECTED HEAD: Atraumatic. Normocephalic. EYES: Pupils equal and round. No scleral icterus. No injection or drainage. ENT: No nasal bleeding or discharge. Mucous membranes pink and moist. NECK: Trachea midline. No JVD. CARDIOVASCULAR: Regular rate and rhythm. RESPIRATORY: No accessory muscle use. Clear to auscultation. Breath sounds equal bilaterally. GASTROINTESTINAL: Abdomen soft, non-tender, nondistended. Hepatic and splenic margins not palpable. MUSCULOSKELETAL: Extremities without clubbing, cyanosis, or edema. No obvious deformities. NEUROLOGICAL: Awake, CONFUSED, CRYING, ABLE TO FOLLOW COMMANDS BUT REQUIRES REPETITIVE REQUESTS. No obvious cranial nerve deficits. Motor grossly within normal limits. Five out of 5 muscle strength in the arms and legs. Normal speech. PSYCHIATRIC: UNABLE TO ASSESS Data Data Last Documented VS Vital Signs Date Time Temp Pulse Resp B/P (MAP) Pulse Ox O2 Delivery O2 Flow Rate FiO2 01/03/17 15:18 66 14 137/73 (94) 100 01/03/17 13:18 Room Air 9/28/17 07:20 98.0 Orders Orders Complete Blood Count With Diff (01/03/17 04:08) Comprehensive Metabolic Panel (01/03/17 04:08) Creatine Kinase (Cpk) (01/03/17 04:08) Prothrombin Time / Inr (Pt) (01/03/17 04:08) Act Partial Throm Time (Ptt) (01/03/17 04:08) Urinalysis - C+S If Indicated (01/03/17 04:08) Chest, Single Ap (01/03/17 04:08) Ct Brain W/O Iv Contrast(Rout) (01/03/17 04:08) Blood Glucose (01/03/17 04:08) Ecg Monitoring (01/03/17 04:08) Iv Access Insert/Monitor (01/03/17 04:08) Oximetry (01/03/17 04:08) Sodium Chlor 0.9% 1000 Ml Inj (Ns 1000 M (01/03/17 04:08) Drug Screen, Random Urine (01/03/17 04:08) Alcohol (Ethanol) (01/03/17 04:08) Tylenol (Acetaminophen) (01/03/17 04:08) Salicylates (Aspirin) (01/03/17 04:08) Lorazepam Inj (Ativan Inj) (01/03/17 04:15) Diphenhydramine Inj (Benadryl Inj) (01/03/17 04:16) Haloperidol Inj (Haldol Inj) (01/03/17 04:30) Diphenhydramine Inj (Benadryl Inj) (01/03/17 04:30) Psych Screen (01/03/17 12:13) Labs Laboratory Tests Test 01/03/17 04:28 01/03/17 04:45 01/03/17 14:00 White Blood Count 12.3 TH/MM3 Red Blood Count 4.70 MIL/MM3 Hemoglobin 14.7 GM/DL Hematocrit 41.6 % Mean Corpuscular Volume 88.4 FL Mean Corpuscular Hemoglobin 31.2 PG Mean Corpuscular Hemoglobin Concent 35.3 % Red Cell Distribution Width 12.7 % Platelet Count 321 TH/MM3 Mean Platelet Volume 7.8 FL Neutrophils (%) (Auto) 83.8 % Lymphocytes (%) (Auto) 8.4 % Monocytes (%) (Auto) 6.9 % Eosinophils (%) (Auto) 0.2 % Basophils (%) (Auto) 0.7 % Neutrophils # (Auto) 10.3 TH/MM3 Lymphocytes # (Auto) 1.0 TH/MM3 Monocytes # (Auto) 0.9 TH/MM3 Eosinophils # (Auto) 0.0 TH/MM3 Basophils # (Auto) 0.1 TH/MM3 CBC Comment DIFF FINAL Differential Comment Blood Urea Nitrogen 10 MG/DL Creatinine 1.10 MG/DL Random Glucose 210 MG/DL Total Protein 8.2 GM/DL Albumin 4.3 GM/DL Calcium Level 8.9 MG/DL Alkaline Phosphatase 65 U/L Aspartate Amino Transf (AST/SGOT) 36 U/L Alanine Aminotransferase (ALT/SGPT) 39 U/L Total Bilirubin 0.8 MG/DL Sodium Level 139 MEQ/L Potassium Level 3.8 MEQ/L Chloride Level 105 MEQ/L Carbon Dioxide Level 25.8 MEQ/L Anion Gap 8 MEQ/L Estimat Glomerular Filtration Rate 78 ML/MIN Total Creatine Kinase 219 U/L Acetaminophen Level LESS THAN 2.0 MCG/ML Ethyl Alcohol Level LESS THAN 3 MG/DL Prothrombin Time 10.8 SEC Prothromb Time International Ratio 1.0 RATIO Activated Partial Thromboplast Time 33.8 SEC Salicylates Level 2.0 MG/DL Urine Color YELLOW Urine Turbidity HAZY Urine pH 6.0 Urine Specific [place] 1.030 Urine Protein 30 mg/dL Urine Glucose (UA) NEG mg/dL Urine Ketones 10 mg/dL Urine Occult Blood NEG Urine Nitrite NEG Urine Bilirubin NEG Urine Urobilinogen 2.0 MG/DL Urine Leukocyte Esterase NEG Urine RBC 2 /hpf Urine WBC 4 /hpf Urine Calcium Oxalate Crystals OCC /hpf Urine Mucus MANY /lpf Microscopic Urinalysis Comment CATH-CULT NOT IND Urine Opiates Screen NEG Urine Barbiturates Screen NEG Urine Amphetamines Screen POS Urine Benzodiazepines Screen NEG Urine Cocaine Screen NEG Urine Cannabinoids Screen POS MDM Medical Decision Making Medical Screen Exam Complete: Yes Emergency Medical Condition: Yes Medical Record Reviewed: Yes Differential Diagnosis INTOXICATION V ICH V ELECTROLYTE ABNL Narrative Course PATIENT FOUND TO HAVE HYPERGLYCEMIA, PRESENT MARIJUANA/METH, NO E/O OF ANEMIA Diagnosis Primary Impression: MAYEN ACT-MEDICALLY CLEARED Additional Impression: POLYSUBSTANCE USE Chi Steinberg MD Jan 03, 2017 04:15
[2017-01-03] MEDS ORDERED: diphenhydrAMINE HCL 50 MG/ML VIAL ONE (04:16)
[2017-01-03] MEDS ORDERED: diphenhydrAMINE HCL 50 MG/ML VIAL IV PUSH ONE (04:30)
[2017-01-03] MEDS ORDERED: HALOPERIDOL LACTATE 5 MG/ML AMP IV ONE (04:30)
[2017-01-03 04:33] LABS: AUTOMATED NEUTROPHIL # 10.3 TH/MM3 (1.8-7.7); BASOPHIL # 0.1 TH/MM3 (0-0.2); BASOPHIL % 0.7 % (0.0-2.0); EOSINOPHIL % 0.2 % (0.0-4.0); HEMATOCRIT 41.6 % (39.0-51.0); HEMO FLAGS DIFF FINAL; LYMPH % 8.4 % (9.0-44.0); MEAN CELL VOLUME 88.4 FL (80.0-100.0); MEAN CORPUSCULAR HEMOGLOBIN 31.2 PG (27.0-34.0); MEAN CORPUSCULAR HGB CONC 35.3 % (32.0-36.0); MONO % 6.9 % (0.0-8.0); NEUT % 83.8 % (16.0-70.0); PLATELET COUNT 321 TH/MM3 (150-450); RED CELL DISTRIBUTION WIDTH 12.7 % (11.6-17.2); WHITE BLOOD COUNT 12.3 TH/MM3 (4.0-11.0)
--- NOTE | 2017-01-03 04:44 | RADRPT ---
EXAM DATE/TIME: 01/03/2017 04:21 [facility] COMPARISON: CHEST SINGLE AP, June 24, 2016, 19:41. INDICATIONS : Altered mental status. Short of breath. MEDICAL HISTORY : Unobtainable. SURGICAL HISTORY : Unobtainable. ENCOUNTER: Initial ACUITY: 1 day PAIN SCORE: Non-responsive. LOCATION: Bilateral chest FINDINGS: A single view of the chest demonstrates the lungs to be symmetrically aerated without evidence of mas s, infiltrate or effusion. The cardiomediastinal contours are unremarkable. Osseous structures are intact. CONCLUSION: No acute disease. No significant change has occurred. Edward Reed MD on January 03, 2017 at 4:43 Board Certified Radiologist. This report was verified electronically.
[2017-01-03 04:45] LABS: ALT (GPT) 39 U/L (12-78); ANION GAP 8 MEQ/L (5-15); AST (GOT) 36 U/L (15-37); BICARBONATE 25.8 MEQ/L (21.0-32.0); BLOOD UREA NITROGEN 10 MG/DL (7-18); CHLORIDE 105 MEQ/L (98-107); GLOMERULAR FILTRATION RATE 78 ML/MIN (>89); POTASSIUM 3.8 MEQ/L (3.5-5.1); SODIUM (NA) 139 MEQ/L (136-145)
[2017-01-03 04:48] LABS: ALKALINE PHOSPHATASE 65 U/L (45-117); CREATINE KINASE 219 U/L (39-308); TOTAL BILIRUBIN ADULT 0.8 MG/DL (0.2-1.0)
[2017-01-03 05:01] VITALS: RESP 15; O2SAT 98
[2017-01-03 05:04] LABS: ACETAMINOPHEN LESS THAN 2.0 MCG/ML (10.0-30.0); ALCOHOL LESS THAN 3 MG/DL (0-5)
[2017-01-03 05:10] LABS: APTT (PATIENT) 33.8 SEC (24.3-30.1); PROTHROMBIN TIME - PATIENT 10.8 SEC (9.8-11.6)
--- NOTE | 2017-01-03 05:19 | RADRPT ---
EXAM DATE/TIME: 01/03/2017 05:03 [facility] COMPARISON: No previous studies available for comparison. INDICATIONS : Altered mental status. RADIATION DOSE: 37.20 CTDIvol (mGy) MEDICAL HISTORY : Non-responsive. SURGICAL HISTORY : None. ENCOUNTER: Initial ACUITY: 1 day PAIN SCALE: 0/10 LOCATION: cranial TECHNIQUE: Multiple contiguous axial images were obtained of the head. Using automated exposure control and adj ustment of the mA and/or kV according to patient size, radiation dose was kept as low as reasonably a chievable to obtain optimal diagnostic quality images. DICOM format image data is available electro nically for review and comparison. FINDINGS: CEREBRUM: The ventricles are normal for age. No evidence of midline shift, mass lesion, hemorrhage or acute in farction. No extra-axial fluid collections are seen. POSTERIOR FOSSA: The cerebellum and brainstem are intact. The 4th ventricle is midline. The cerebellopontine angle i s unremarkable. EXTRACRANIAL: The visualized portion of the orbits is intact. SKULL: The calvaria is intact. No evidence of skull fracture. CONCLUSION: Normal examination. Edward Reed MD on January 03, 2017 at 5:16 Board Certified Radiologist. This report was verified electronically.
[2017-01-03 07:20] VITALS: BP 123/58; PULSE 83; RESP 18; TEMP 98; O2SAT 99
[2017-01-03 13:18] VITALS: BP 137/73; PULSE 66; RESP 14; O2SAT 100
--- NOTE | 2017-01-03 13:42 | PD ---
History of Present Illness Chief Complaint: Psychiatric Symptoms Time Seen by Provider: 13:30 Travel History International Travel<30 Days: No Contact w/Intl Traveler<30days: No Known affected area: No Legal Status Legal Status: Baugh Act History of Present Illness: Patient evaluated [id number] by this physician, medical record reviewed and case discussed with nurses. This physician feels the patient is a drug addict and manipulative. He is not currently expressing suicidal or homicidal ideation , plan or intent. This physician notes the patient was treated earlier this morning with Haldol. Patient is self admittedly a drug addict and recently used crystal meth. He demonstrates no psychotic symptoms and his cognition is intact. He does appear to be somewhat "medicated" from his earlier treatment in the emergency department, but easily arousable and answers questions.. However, he does not qualify for Baugh act or involuntary psychiatric hospitalization at this time. As he has been medically cleared by the emergency department, he is free to leave. PFSH Past Medical History Medical History: Unable to Obtain Diminished Hearing: No Immunizations Current: Yes Past Surgical History Surgical History: Unable to Obtain Psychiatric History Psychiatric History Hx Psychiatric Treatment: deneis any History of Inpatient Treatment: No Guns or firearms in home: No Social History Hx Alcohol Use: Yes (occ) Hx Tobacco Use: Yes Hx Substance Use: Yes Substance Use Type: Alcohol, Marijuana, Amphetamines-Stimulants, Cocaine Hx of Substance Use Treatment: Yes Allergies-Medications (Allergen,Severity, Reaction): Coded Allergies: acetaminophen (Unverified Allergy, Severe, 01/03/17) hydrocodone (Unverified Allergy, Severe, 01/03/17) loratadine (Unverified Allergy, Severe, 01/03/17) tramadol (Unverified Allergy, Severe, 01/03/17) Reported Meds & Prescriptions Reported Meds & Active Scripts Active Ibuprofen 800 Mg Tab 800 Mg PO Q8H PRN Review of Systems Except as stated in HPI: all other systems reviewed are Neg Exam Alert: Yes Eek: Person, Place, Date, Situation Mood: Calm, Other Affect: Appropriate Speech: Clear, Logical Eye Contact: Indirect Memory Intact: Immediate, Recent, Remote Insight/Judgement Adequate MDM Medical Decision Making Medical Record Reviewed: Yes Assessment/Plan Patient interviewed, medical record reviewed and case discussed with nurse, Kimmy. This physician feels this is a drug addict who is behaving in a manipulative fashion. He is being referred to [facility] for further treatment of his drug abuse. In this physician's opinion, he does not qualify for Baugh act or involuntary psychiatric hospitalization. He may be discharged with follow up at [facility]. Orders Orders Complete Blood Count With Diff (01/03/17 04:08) Comprehensive Metabolic Panel (01/03/17 04:08) Creatine Kinase (Cpk) (01/03/17 04:08) Prothrombin Time / Inr (Pt) (01/03/17 04:08) Act Partial Throm Time (Ptt) (01/03/17 04:08) Urinalysis - C+S If Indicated (01/03/17 04:08) Chest, Single Ap (01/03/17 04:08) Ct Brain W/O Iv Contrast(Rout) (01/03/17 04:08) Blood Glucose (01/03/17 04:08) Ecg Monitoring (01/03/17 04:08) Iv Access Insert/Monitor (01/03/17 04:08) Oximetry (01/03/17 04:08) Sodium Chlor 0.9% 1000 Ml Inj (Ns 1000 M (01/03/17 04:08) Drug Screen, Random Urine (01/03/17 04:08) Alcohol (Ethanol) (01/03/17 04:08) Tylenol (Acetaminophen) (01/03/17 04:08) Salicylates (Aspirin) (01/03/17 04:08) Lorazepam Inj (Ativan Inj) (01/03/17 04:15) Diphenhydramine Inj (Benadryl Inj) (01/03/17 04:16) Haloperidol Inj (Haldol Inj) (01/03/17 04:30) Diphenhydramine Inj (Benadryl Inj) (01/03/17 04:30) Psych Screen (01/03/17 12:13) Results Vital Signs Date Time Temp Pulse Resp B/P (MAP) Pulse Ox O2 Delivery O2 Flow Rate FiO2 01/03/17 13:18 66 14 137/73 (94) 100 Room Air 01/03/17 07:20 98.0 83 18 123/58 (79) 99 Room Air 01/03/17 05:01 15 98 Room Air 01/03/17 04:14 98.7 114 14 138/71 (93) 98 Laboratory Tests Test 01/03/17 04:28 01/03/17 04:45 White Blood Count 12.3 Red Blood Count 4.70 Hemoglobin 14.7 Hematocrit 41.6 Mean Corpuscular Volume 88.4 Mean Corpuscular Hemoglobin 31.2 Mean Corpuscular Hemoglobin Concent 35.3 Red Cell Distribution Width 12.7 Platelet Count 321 Mean Platelet Volume 7.8 Neutrophils (%) (Auto) 83.8 Lymphocytes (%) (Auto) 8.4 Monocytes (%) (Auto) 6.9 Eosinophils (%) (Auto) 0.2 Basophils (%) (Auto) 0.7 Neutrophils # (Auto) 10.3 Lymphocytes # (Auto) 1.0 Monocytes # (Auto) 0.9 Eosinophils # (Auto) 0.0 Basophils # (Auto) 0.1 CBC Comment DIFF FINAL Differential Comment Blood Urea Nitrogen 10 Creatinine 1.10 Random Glucose 210 Total Protein 8.2 Albumin 4.3 Calcium Level 8.9 Alkaline Phosphatase 65 Aspartate Amino Transf (AST/SGOT) 36 Alanine Aminotransferase (ALT/SGPT) 39 Total Bilirubin 0.8 Sodium Level 139 Potassium Level 3.8 Chloride Level 105 Carbon Dioxide Level 25.8 Anion Gap 8 Estimat Glomerular Filtration Rate 78 Total Creatine Kinase 219 Acetaminophen Level LESS THAN 2.0 Ethyl Alcohol Level LESS THAN 3 Prothrombin Time 10.8 Prothromb Time International Ratio 1.0 Activated Partial Thromboplast Time 33.8 Salicylates Level 2.0 Diagnosis Primary Impression: Polysubstance abuse Andrey Gillespie MD Jan 03, 2017 13:42
[2017-01-03 15:00] LABS: BLOOD, URINE NEG (NEG); CALCIUM OXALATE CRYSTALS,URINE OCC /hpf; GLUCOSE,URINE NEG (NEG); KETONE, URINE 10 mg/dL (NEG); MUCUS URINE MANY /lpf (OCC); NITRITE,URINE NEG (NEG); URINE COLOR YELLOW (YELLW/STRAW)
[2017-01-03 15:07] LABS: COMMENT (UR) CATH-CULT NOT IND; CULTURE IF INDICATED CATH CULTURE NOT IND
[2017-01-03 15:18] VITALS: BP 137/73
--- NOTE | 2017-01-03 15:38 | PD ---
Physical Exam Time Seen by Provider: 15:[address] Gillespie evaluated the patient, lifted the Baugh act and the patient will be discharged home. Data Data Last Documented VS Vital Signs Date Time Temp Pulse Resp B/P (MAP) Pulse Ox O2 Delivery O2 Flow Rate FiO2 01/03/17 15:18 66 14 137/73 (94) 100 01/03/17 13:18 Room Air 01/03/17 07:20 98.0 Orders Orders Complete Blood Count With Diff (01/03/17 04:08) Comprehensive Metabolic Panel (01/03/17 04:08) Creatine Kinase (Cpk) (01/03/17 04:08) Prothrombin Time / Inr (Pt) (01/03/17 04:08) Act Partial Throm Time (Ptt) (01/03/17 04:08) Urinalysis - C+S If Indicated (01/03/17 04:08) Chest, Single Ap (01/03/17 04:08) Ct Brain W/O Iv Contrast(Rout) (01/03/17 04:08) Blood Glucose (01/03/17 04:08) Ecg Monitoring (01/03/17 04:08) Iv Access Insert/Monitor (01/03/17 04:08) Oximetry (01/03/17 04:08) Sodium Chlor 0.9% 1000 Ml Inj (Ns 1000 M (01/03/17 04:08) Drug Screen, Random Urine (01/03/17 04:08) Alcohol (Ethanol) (01/03/17 04:08) Tylenol (Acetaminophen) (01/03/17 04:08) Salicylates (Aspirin) (01/03/17 04:08) Lorazepam Inj (Ativan Inj) (01/03/17 04:15) Diphenhydramine Inj (Benadryl Inj) (01/03/17 04:16) Haloperidol Inj (Haldol Inj) (01/03/17 04:30) Diphenhydramine Inj (Benadryl Inj) (01/03/17 04:30) Psych Screen (01/03/17 12:13) Labs Laboratory Tests Test 01/03/17 04:28 01/03/17 04:45 01/03/17 14:00 White Blood Count 12.3 TH/MM3 Red Blood Count 4.70 MIL/MM3 Hemoglobin 14.7 GM/DL Hematocrit 41.6 % Mean Corpuscular Volume 88.4 FL Mean Corpuscular Hemoglobin 31.2 PG Mean Corpuscular Hemoglobin Concent 35.3 % Red Cell Distribution Width 12.7 % Platelet Count 321 TH/MM3 Mean Platelet Volume 7.8 FL Neutrophils (%) (Auto) 83.8 % Lymphocytes (%) (Auto) 8.4 % Monocytes (%) (Auto) 6.9 % Eosinophils (%) (Auto) 0.2 % Basophils (%) (Auto) 0.7 % Neutrophils # (Auto) 10.3 TH/MM3 Lymphocytes # (Auto) 1.0 TH/MM3 Monocytes # (Auto) 0.9 TH/MM3 Eosinophils # (Auto) 0.0 TH/MM3 Basophils # (Auto) 0.1 TH/MM3 CBC Comment DIFF FINAL Differential Comment Blood Urea Nitrogen 10 MG/DL Creatinine 1.10 MG/DL Random Glucose 210 MG/DL Total Protein 8.2 GM/DL Albumin 4.3 GM/DL Calcium Level 8.9 MG/DL Alkaline Phosphatase 65 U/L Aspartate Amino Transf (AST/SGOT) 36 U/L Alanine Aminotransferase (ALT/SGPT) 39 U/L Total Bilirubin 0.8 MG/DL Sodium Level 139 MEQ/L Potassium Level 3.8 MEQ/L Chloride Level 105 MEQ/L Carbon Dioxide Level 25.8 MEQ/L Anion Gap 8 MEQ/L Estimat Glomerular Filtration Rate 78 ML/MIN Total Creatine Kinase 219 U/L Acetaminophen Level LESS THAN 2.0 MCG/ML Ethyl Alcohol Level LESS THAN 3 MG/DL Prothrombin Time 10.8 SEC Prothromb Time International Ratio 1.0 RATIO Activated Partial Thromboplast Time 33.8 SEC Salicylates Level 2.0 MG/DL Urine Color YELLOW Urine Turbidity HAZY Urine pH 6.0 Urine Specific [place] 1.030 Urine Protein 30 mg/dL Urine Glucose (UA) NEG mg/dL Urine Ketones 10 mg/dL Urine Occult Blood NEG Urine Nitrite NEG Urine Bilirubin NEG Urine Urobilinogen 2.0 MG/DL Urine Leukocyte Esterase NEG Urine RBC 2 /hpf Urine WBC 4 /hpf Urine Calcium Oxalate Crystals OCC /hpf Urine Mucus MANY /lpf Microscopic Urinalysis Comment CATH-CULT NOT IND Urine Opiates Screen NEG Urine Barbiturates Screen NEG Urine Amphetamines Screen POS Urine Benzodiazepines Screen NEG Urine Cocaine Screen NEG Urine Cannabinoids Screen POS MDM Medical Record Reviewed: Yes Supervised Visit with REYNOLD: Yes Narrative Course Dr. Gillespie has evaluated the patient, lifted the Baugh act and the patient will be discharged home. Patient contracts safety. Denies suicidal or homicidal ideations. Patient will be provided community resource packet to [facility] for follow-up. Has friends and family for support. Patient is medically cleared for discharge. Diagnosis Primary Impression: Polysubstance abuse Referrals: [facility] Patient Instructions: General Instructions, Polysubstance Abuse (ED) Departure Forms: Tests/Procedures Additional Instruction: RESOURCE PACKET FOR SUBSTANCE TREATMENT Contract safety to your self and others Follow-up with psychiatry Follow-up with primary care provider Follow-up with Konrad Echols Return to the emergency department immediately with worsening of symptoms Disposition: 01 DISCHARGE HOME Condition: Stable Aisha Huerta Jan 03, 2017 15:38
[2017-01-03] MEDS ORDERED: DICL75TA PO (19:27)
[2017-01-03] MEDS ORDERED: CEPH-460 PO (19:27)
[2017-01-03] MEDS ORDERED: BACT800T5 PO (19:27)
== END 2017-01-03 15:59 | disposition home or self-care (01) ==
LOC: NEPE 04:00 → NEPJ 15:59
DX: F19.10 Other psychoactive substance abuse, uncomplicated (principal); Z72.0 Tobacco use
CPT/HCPCS: 70450; 71010; 80053; 80307; 81001; 82550; 85025; 85610; 85730; 96361; 96374; 96375; 99285; J1200; J1630; J2060; J7030

== ENCOUNTER 2017-01-03 16:58 | Emergency (ER) | payer SELFPAY ==
[~2017-01-03] VITALS: Ht 180.3 cm; Wt 91.0 kg
[2017-01-03 17:05] VITALS: BP 118/58; PULSE 103; RESP 18; TEMP 97.7; O2SAT 97
[2017-01-03] MEDS ORDERED: CEPH-460 PO (19:27)
[2017-01-03] MEDS ORDERED: DICL75TA PO (19:27)
[2017-01-03] MEDS ORDERED: BACT800T5 PO (19:27)
[2017-01-03] MEDS ORDERED: CEPHALEXIN MONOHYDRATE 500 MG CAP PO ONE (19:30)
[2017-01-03] MEDS ORDERED: CLINDAMYCIN PHOS 600 MG/4 ML VIAL IM ONE (19:30)
[2017-01-03] MEDS ORDERED: SULFAMETHOXAZOLE-TRIMETHOPRIM DS 800-160 MG TAB PO ONE (19:30)
[2017-01-03] MEDS ORDERED: KETOROLAC TROMETHAMINE 60 MG/2 ML (IM) VIAL IM ONE (19:30)
--- NOTE | 2017-01-03 19:30 | PD ---
HPI Chief Complaint: Skin Problem Time Seen by Provider: 19:21 Travel History International Travel<30 days: No Contact w/Intl Traveler<30days: No Traveled to known affect area: No History of Present Illness HPI 31-year-old male that presents to the ED for evaluation of skin lesions and trouble walking secondary to skin lesions. Per patient she's had this for a couple of weeks. Patient was seen here earlier today as a substance abuser. Apparently he used meth. At the time of examination the physician who saw him mention that patient was a heart history and secondary to his acute intoxication and he seemed very anxious and history was limited because of this. Patient was released this morning and apparently came back. Patient tells me that he is having pain in his legs as well as lesions to his arms and legs that he's had on and off for a couple of weeks. Per patient he came here to get this checked. He also asked me to see whether he can stay overnight so he can have a place tomorrow to go to as well as significant have food. He denies any chest pain or shortness of breath. He denies any IV drug abuse but he does have a history of polysubstance abuse and has been here multiple times for the past. 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 He states that his pain especially on the right leg is 8 out of 10. No other medical issues. No allergies to medication. PFSH Past Medical History Bipolar Disorder: Yes Diminished Hearing: No Immunizations Current: Yes Influenza Vaccination: Yes Past Surgical History Surgical History: No Previous Surgery Social History Alcohol Use: Yes (occ) Tobacco Use: Yes Substance Use: Yes (denies) Allergies-Medications (Allergen,Severity, Reaction): Coded Allergies: No Known Allergies (Unverified , 01/03/17) Reported Meds & Prescriptions Reported Meds & Active Scripts Active Keflex (Cephalexin) 500 Mg Cap 500 Mg PO Q8H 10 Days Bactrim DS (Sulfamethoxazole-Trimethoprim) 800-160 Mg Tab 1 Tab PO BID [address] (Diclofenac Sodium) 75 Mg Tabdr 75 Mg PO BID PRN Review of Systems Except as stated in HPI: all other systems reviewed are Neg Physical Exam Narrative GENERAL: SKIN: Warm and dry. Patient has multiple skin lesions pustule-like on the chest , arms and legs. Motor on the left leg than the right. Patient also has some on his face. Able to move extremities. Mild limping noted on exam. HEAD: Atraumatic. Normocephalic. EYES: Pupils equal and round. No scleral icterus. No injection or drainage. ENT: No nasal bleeding or discharge. Mucous membranes pink and moist. Tongue is midline. No uvula deviation. NECK: Trachea midline. No JVD. CARDIOVASCULAR: Regular rate and rhythm. No murmurs, S3, S4. RESPIRATORY: No accessory muscle use. Clear to auscultation. Breath sounds equal bilaterally. GASTROINTESTINAL: Abdomen soft, non-tender, nondistended. Hepatic and splenic margins not palpable. MUSCULOSKELETAL: Extremities without clubbing, cyanosis, or edema. No obvious deformities. Full range of motion of the upper and lower extremities bilaterally. 2+ pulses bilaterally. NEUROLOGICAL: Awake and alert. No obvious cranial nerve deficits. Motor grossly within normal limits. Five out of 5 muscle strength in the arms and legs. Normal speech. PSYCHIATRIC: Appropriate mood and affect; insight and judgment normal. Data Data Last Documented VS Vital Signs Date Time Temp Pulse Resp B/P (MAP) Pulse Ox O2 Delivery O2 Flow Rate FiO2 01/03/17 17:05 97.7 103 18 118/58 (78) 97 Room Air Orders Orders Clindamycin Inj (Cleocin Inj) (01/03/17 19:30) Ketorolac Inj (Toradol Inj) (01/03/17 19:30) Sulfamet-Trimeth Ds 800-160 Mg (Bactrim (01/03/17 19:30) Cephalexin (Keflex) (01/03/17 19:30) MDM Medical Decision Making Medical Screen Exam Complete: Yes Emergency Medical Condition: Yes Medical Record Reviewed: Yes Differential Diagnosis MRSA versus skin lesions versus impetigo versus malingering versus polysubstance abuse Narrative Course 31-year-old male that presents to the ED for evaluation of skin lesions and pain. Patient was properly examined and was found to have signs and symptoms very consistent what appears to be skin infection. This appeared to be more likely from substance abuse. Patient will be started on Bactrim and Keflex here. He was given Toradol for pain here. I do not see any need for admission secondary to patient's vitals and physical exam been reassuring. His been sleeping the whole time she's been here. He appears to be homeless and he asked me specifically if I could admit him overnight so he can have a place to sleep. I unfortunately told the patient that I cannot do this and will have case management speaking with him to see if he can find a place where he can stay. He agrees with this plan. He also asked for food. Suffered was provided. Follow with PCP. See ED worsening symptoms. Diagnosis Primary Impression: Skin infection Patient Instructions: General Instructions Additional Instructions: Take medications as prescribed. Bactrim is for [employer]. Ice or warm compresses to areas of pain. Follow with PCP. Avoid using drugs. See ED worsening symptoms. Med/Other Pt SpecificInfo: Prescription(s) given Scripts Cephalexin (Keflex) 500 Mg Cap 500 MG PO Q8H for Infection for 10 Days, #30 CAP 0 Refills Prov: Tereza Staples MD 01/03/17 Sulfamethoxazole-Trimethoprim (Bactrim DS) 800-160 Mg Tab 1 TAB PO BID for Infection for 10 Days, TAB 0 Refills Prov: Tereza Staples MD 01/03/[address] (Diclofenac Sodium DR) 75 Mg Tabdr 75 MG PO BID Y for PAIN SCALE 1 TO 10, #20 TAB 0 Refills Prov: Tereza Staples MD 01/03/17 Disposition: 01 DISCHARGE HOME Condition: Min Hurst Jan 03, 2017 19:30
[2017-01-03 19:47] VITALS: BP 130/63; PULSE 71; RESP 18; O2SAT 100
== END 2017-01-03 20:30 | disposition home or self-care (01) ==
LOC: NEPC 16:58
DX: L08.9 Local infection of the skin and subcutaneous tissue, unspecified (principal); F19.10 Other psychoactive substance abuse, uncomplicated; Z72.0 Tobacco use
CPT/HCPCS: 96372; 99284; J1885